=== PATIENT | female | born 1995 | race Two or more races ===

== ENCOUNTER 2021-12-01 22:02 | Emergency (ER) | payer OTHER ==
[~2021-12-01] VITALS: Ht 149.9 cm; Wt 78.0 kg
== END 2021-12-02 02:51 ==
LOC: ER 22:02
DX: O20.9 Hemorrhage in early pregnancy, unspecified (principal); Z3A.01 Less than 8 weeks gestation of pregnancy

== ENCOUNTER 2022-06-02 17:43 | Outpatient (CLI) | payer OTHER | END 2022-06-02 18:35 | disposition home or self-care (01) | LOC: OBS/DEL 17:43 | PROVIDERS: ATTEND Specialist | DX: O98.813 Other maternal infectious and parasitic diseases complicating pregnancy, third trimester (principal); Z3A.33 33 weeks gestation of pregnancy; O99.613 Diseases of the digestive system complicating pregnancy, third trimester; K92.89 Other specified diseases of the digestive system ==